=== PATIENT | female | born 1975 | race Two or more races ===

== ENCOUNTER 2023-03-13 18:06 | Outpatient (REF) | payer SELFPAY ==
[2023-03-14 11:50] LABS: CT PCR NOT DETECTED (Not Detect.); NG PCR NOT DETECTED (Not Detect.)
== END 2023-03-13 18:07 | disposition home or self-care (01) ==
LOC: HO.HHCLNP 18:06
PROVIDERS: Visit Provider Internal Medicine
DX: R30.0 Dysuria (principal); Z11.3 Encounter for screening for infections with a predominantly sexual mode of transmission
CPT/HCPCS: 0353U; 87086; 87088; 87186

== ENCOUNTER 2023-09-15 17:32 | Outpatient (REF) | payer MEDICAID, SELFPAY ==
[2023-09-16 03:12] LABS: CT PCR NOT DETECTED (Not Detect.); NG PCR NOT DETECTED (Not Detect.)
[2023-09-16 14:51] LABS: BV Int Neg Control Negative (Negative); BV Int Pos Control Positive (Positive)
== END 2023-09-15 17:33 | disposition home or self-care (01) ==
LOC: HO.HHCLNP 17:32
PROVIDERS: Visit Provider Family Medicine
DX: R39.9 Unspecified symptoms and signs involving the genitourinary system (principal); N89.8 Other specified noninflammatory disorders of vagina
CPT/HCPCS: 0353U; 87086; 87480; 87510; 87660

== ENCOUNTER 2024-04-15 10:08 | Outpatient (REF) | payer MEDICAID, SELFPAY ==
[2024-04-15 11:27] LABS: Hematocrit 43.7 % (37.0-47.0); Hemoglobin 14.2 g/dl (12.0-16.0); Mean Corpuscular HGB Conc 32.5 g/dl (31.0-35.0); Mean Corpuscular Hemoglobin 27.8 pg (27.0-33.0); Mean Corpuscular Volume 85.7 fL (80.0-98.0); Mean Platelet Volume 11.5 fL (9.4-12.3); Platelet Count 257 X10*3/uL (160-400); Red Cell Distribution Width 12.8 % (11.0-16.0); White Blood Count 9.7 X10*3/uL (4.8-10.8)
[2024-04-15 13:25] LABS: Estimated Average Glucose 123 mg/dL; Hemoglobin A1C 239.0879 umol/L; Hemoglobin A1c % 5.9 % (<6.0); Total Hemoglobin (HGBA1C) 5912.6093 umol/L
[2024-04-15 13:29] LABS: Alanine Aminotransferase 41 U/L (0-31); Albumin Level 4.1 g/dL (3.5-5.0); Alkaline Phosphatase 100 U/L (39-117); Anion Gap 16 (12-20); Aspartate Amino Transferase 41 U/L (5-31); Bilirubin Total 0.3 mg/dL (0.0-1.0); Blood Urea Nitrogen 10 mg/dL (9-16); Calcium 9.9 mg/dL (8.4-10.2); Carbon Dioxide 23 mmol/L (22-29); Chloride 106 mmol/L (96-108); Cholesterol 179 mg/dL (<200); Estimated Glomerular Filt Rate > 60; Glucose Random 93 mg/dL (60-115); HDL Cholesterol 48 mg/dL (>40); LDL Cholesterol Calculated 101 mg/dL (<100); Potassium 3.8 mmol/L (3.3-5.1); Sodium 141 mmol/L (135-145); TSH reflex Free T4 4.05 uIU/mL (0.32-4.0); Total Protein 7.9 g/dL (6.5-8.0); Triglycerides 150 mg/dL (<150)
[2024-04-15 15:01] LABS: CT PCR NOT DETECTED (Not Detect.); NG PCR NOT DETECTED (Not Detect.)
[2024-04-16 03:34] LABS: Syphilis Screen Nonreactive (Nonreactive)
[2024-04-16 04:09] LABS: HBS Num1 0.11 mIU/mL (0-7.99); HBc Num1 0.21 S/CO (0.00-0.79); HBsAGNum1 0.62 S/CO (0.00-0.99); HIV AB/AG Nonreactive (Nonreactive); HIV Num 1 0.07 S/CO (0.00-0.99); Hepatitis B Core Antibody Nonreactive (Nonreactive); Hepatitis B Surface Antigen Negative (Negative); ~HepC Num1 0.13 S/CO (0.00-0.79); ~Hepatitis B Surface Antibody NONREACTIVE (Nonreactive); ~Hepatitis C Antibody Nonreactive (Nonreactive)
== END 2024-04-15 10:09 | disposition home or self-care (01) ==
LOC: HO.HHCL 10:08
PROVIDERS: Visit Provider Student in an Organized Health Care Education/Training Program
DX: Z00.00 Encounter for general adult medical examination without abnormal findings (principal)
CPT/HCPCS: 36415; 80053; 80061; 82306; 83036; 84439; 84443; 85027; 86704; 86706; 86780; 86803; 87340; 87389; 87491; 87591

== ENCOUNTER 2024-04-18 16:16 | Outpatient (REF) | payer OTHER, SELFPAY ==
[2024-04-19 12:38] LABS: HPV 16,18/45 See PAP report
== END 2024-04-18 16:17 | disposition home or self-care (01) ==
LOC: HO.HHCLNP 16:16
PROVIDERS: Visit Provider Advanced Practice Midwife
DX: Z12.4 Encounter for screening for malignant neoplasm of cervix (principal)
CPT/HCPCS: 87624; 88175

== ENCOUNTER 2024-04-25 13:43 | Outpatient (REF) | payer OTHER, SELFPAY ==
--- NOTE | ~2024-04-25 | US_ITS ---
EXAMINATION: US PELVIS CLINICAL INFORMATION: Postmenopausal bleeding. COMPARISON: None available. TECHNIQUE: Ultrasound of the pelvis is performed using both transabdominal and transvaginal transducers along with Doppler. Transvaginal imaging is performed due to inadequate visualization transabdominally. FINDINGS: UTERUS: The uterus is anteverted and measures 6.5 x 2.4 x 4.5 cm. Nabothian cysts and calcifications within the cervix. The double wall endometrial thickness is 4 mm. The uterus is smooth in contour and has normal myometrial echogenicity. No visible fibroid. ADNEXA: Both ovaries are visualized. There is normal color flow to the adnexa. There is no ovarian torsion. There is no pelvic ascites or fluid collection. Right ovary measures 1.6 x 0.8 x 0.8 cm. Volume of 0.6 mL. Left ovary measures 1.6 x 0.9 x 0.9 cm. Volume of 0.6 mL. US/US pelvic and transvaginal IMPRESSION: 1. Sonographically unremarkable uterus and endometrium. Nabothian cysts and calcifications within the cervix. 2. Sonographically unremarkable right and left ovary. Electronically signed by: Richie Allen MD 04/25/2024 05:45 PM [facility] [place]
== END 2024-04-25 13:44 | disposition home or self-care (01) ==
LOC: HO.US 13:43
PROVIDERS: PCP Student in an Organized Health Care Education/Training Program; Visit Provider Advanced Practice Midwife
DX: N95.0 Postmenopausal bleeding (principal)
CPT/HCPCS: 76830; 76856

== ENCOUNTER 2024-05-04 09:51 | Outpatient (REF) | payer OTHER, SELFPAY ==
--- NOTE | ~2024-05-04 | MM_ITS ---
EXAMINATION: MM SCREENING DIGITAL BREAST TOMOSYNTHESIS, BILATERAL CLINICAL INFORMATION: Screening. Asymptomatic. COMPARISON: Mammography: Baseline. TECHNIQUE: Digital breast mammography with tomosynthesis is performed in both the craniocaudal and mediolateral oblique views along with computer-aided detection (CAD). FINDINGS: There are scattered areas of fibroglandular density (ACR BI-RADS breast composition Category b). There are no significant masses, abnormal calcifications, or other abnormalities. MM/MM tomosynthesis screening BI IMPRESSION: No mammographic evidence of malignancy. ASSESSMENT: BI-RADS BI-RADS 1 - Negative RECOMMENDATION: Routine annual mammography screening. 1 year F/U This examination should not preclude the clinical evaluation of a suspicious palpable abnormality. This patient's information was entered into a reminder system with a target due date for their next mammogram. Electronically signed by: April Chung DO 05/15/2024 12:13 PM [facility]
== END 2024-05-04 09:52 | disposition home or self-care (01) ==
LOC: HO.MAMMO 09:51
PROVIDERS: PCP Student in an Organized Health Care Education/Training Program; Visit Provider Student in an Organized Health Care Education/Training Program
DX: Z12.31 Encounter for screening mammogram for malignant neoplasm of breast (principal)
CPT/HCPCS: 77063; 77067

== ENCOUNTER → 2024-05-04 10:00 | Outpatient (BNV) | payer OTHER, SELFPAY | PROVIDERS: PCP Student in an Organized Health Care Education/Training Program; Visit Provider Internal Medicine | DX: Z12.31 Encounter for screening mammogram for malignant neoplasm of breast (principal) | CPT/HCPCS: 77063; 77067 ==

== ENCOUNTER 2025-05-07 10:01 | Outpatient (AMB) | payer OTHER, SELFPAY ==
--- NOTE | 2025-05-07 10:34 | A.OFFVIS_ITS ---
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 Doesnt have hard time falling asleep but hard time staying asleep. Does snore, no witnessed apnea/gasping. Goes to bed at 11:30pm, wakes up at 6am. Wakes up 2-3 times night to use bathroom. No naps. Headaches at times goes away through out the day. No history of sleep study Foreign Car Mechanic Required: Yes Foreign Car Mechanic Language: Professional Housing Consultant Services: Foreign Car Mechanic Offered & Declined Foreign Car Mechanic Name: alvino Information Interpreted: non-clinical & clinical Accompanied by: Self / Same As Patient Allergies No Known Allergies Allergy (Verified 05/07/25 10:38) HPI Comments Details: 50 year old female is referred to us for an evaluation of ROSALIE by her PCP Dr. Alves. Her niece Yenny is interpreting on her IPhone today. She works as a [employer] is chronically fatigued, goes to bed at midnight and wakes up at 6am for work. She has difficulty staying asleep for years now with multiple arousals for the bathroom, and has vivid dreams. She has night peralta once a month. She snores sometimes, she has morning headaches daily takes advil liquid gels as needed. Memory is stable will occasionally will forget why she entered a room. She has to write all tasks down. Mood is consistently feels stressed, has anxiety, she gets overwhelmed and has a lot on her plate. She has been on zepbound for 2 months now and lost 9lbs weights. She walks every other day, drinks plenty of water. Denies HST, gasping for air, choking, bruxism, acid reflux, RLS symptoms, cramps, spasms, paresthesisias, parasomnias, a/v hallucinations. Denies RLS symptoms. Former smoker of 10 years and quit a few years ago, no alcohol, MJ edibles. FH+ for dementia and mental health. [facility] Medical History Elevated blood pressure reading Loud snoring Onychomycosis Allergic contact stomatitis due to denture Retained dental root Periodontal disease Dental calculus Morbid obesity Physical Exam Vital Signs: Last Vital Signs Pulse 79 05/07/25 10:37 BP 122/82 05/07/25 10:37 Pulse Ox 97 05/07/25 10:37 Oxygen Delivery Method Room Air 05/07/25 10:37 BMI result Body Mass Index 42.9 Const General: cooperative, comfortable and no acute distress Orientation/consciousness: patient oriented x3 HEENT Face and sinus: Yes face symmetric Throat: Yes other (mallampti score of 3) Eyes Pupils: Equal, round and reactive pupils present Neck Neck: Yes full ROM Resp Effort & Inspection: normal respiratory effort and able to speak in complete sentences Neuro General: patient oriented x3 and moves all extremities Cranial nerves: Yes Equal, round and reactive pupils present, Yes Normal accommodation reflex present, Yes Normal facial strength present, Yes Ability to bilaterally rotate head present and Yes Ability to bilaterally elevate shoulders present Cognition (Neuro): normal cognition Gait exam (Neuro): Normal gait present Motor exam (neuro): 5/5 motor strength present throughout and Normal motor muscle tone present throughout Psych Appearance: grossly normal Speech and movement: Normal speech and movement present Attitude: cooperative Thought process: Normal thought process present Thought content: Normal thought content present Results Reviewed Results Reviewed: labs reviewed with pt vit d is low, and TSH is high. Assessment & Plan Assessment & Plan (1) Excessive daytime sleepiness: Code(s): G47.19 - Other hypersomnia Category: Medical (2) Low vitamin D level: Code(s): R79.89 - Other specified abnormal findings of blood chemistry Category: Medical (3) Chronic fatigue: Code(s): R53.82 - Chronic fatigue, unspecified Category: Medical Plan HST r/o rosalie Melatonin 3-5mg po daily for fragmented sleep patterns. Magnesium 200-400mg po for headaches. Labs reviewed with pt TSH is elevated, Vit D low, will refill today and check ferritin, b12, homocystiene, MMA, Folate. Orders: Orders RT home sleep study Today G47.19 - Other hypersomnia Ferritin Today R53.82 - Chronic fatigue, unspecified Homocysteine Today G47.9 - Sleep disorder, unspecified, R53.82 - Chronic fatigue, unspecified, R53.83 - Other fatigue Vitamin B12 and Folate Today R53.82 - Chronic fatigue, unspecified Methylmalonic Acid Today G47.9 - Sleep disorder, unspecified, R53.82 - Chronic fatigue, unspecified, R53.83 - Other fatigue Medications: New magnesium oxide 400 mg PO DAILY 90 tabs 0RF G47.19 - Other hypersomnia Patient Instructions: Sleep Hygiene provided: set a scheduled bedtime and wake time to help regulate the circadian rhythm and balance the release of pituitary hormones. Sleep in a dark room, temperatures below 68 degrees, and no devices n bed. Limit caffeinated products 6 hours prior to bed, and limit fluids 2-4 hours prior to bed. Gentle night yoga, diffusing essential oils, and playing soft music can be relaxing. Coding Level of Care Code New Pt Level 4 (37832) Diagnoses Excessive daytime sleepiness G47.19 Low vitamin D level R79.89 Chronic fatigue R53.82
[2025-05-07 10:37] VITALS: BP 122/82; PULSE 79; O2SAT 97; BMI 42.9
== END 2025-05-07 11:18 | disposition home or self-care (01) ==
LOC: HO.HSMC 10:02
PROVIDERS: PCP Student in an Organized Health Care Education/Training Program; Visit Provider Physician Assistant Medical
DX: G47.19 Other hypersomnia (principal); R79.89 Other specified abnormal findings of blood chemistry; R53.82 Chronic fatigue, unspecified
CPT/HCPCS: 99204

== ENCOUNTER → 2025-05-07 10:01 | Outpatient (BNVA) | payer OTHER, SELFPAY | PROVIDERS: PCP Student in an Organized Health Care Education/Training Program; Visit Provider Physician Assistant Medical | DX: G47.19 Other hypersomnia (principal); R79.89 Other specified abnormal findings of blood chemistry; R53.82 Chronic fatigue, unspecified | CPT/HCPCS: 99202 ==

== ENCOUNTER 2025-05-19 10:09 | Outpatient (REF) | payer OTHER, SELFPAY ==
[2025-05-19 11:40] LABS: Hematocrit 46.9 % (37.0-47.0); Hemoglobin 14.9 g/dl (12.0-16.0); Imm Gran Abs Auto 0.02 X10*3/uL (0.00-0.03); Imm Gran Pct Auto 0.2 % (0.0-0.4); Lymphocytes Absolute Auto 2.3 X10*3/uL (1.2-4.9); MANUAL DIFF FLAG SCAN; Mean Corpuscular HGB Conc 31.8 g/dl (31.0-35.0); Mean Corpuscular Hemoglobin 27.2 pg (27.0-33.0); Mean Corpuscular Volume 85.6 fL (80.0-98.0); NRBC Abs Auto 0.000 X10*3/uL (0.0-0.012); NRBC Pct Auto 0.0 /100WBC (0.0-0.2); PLT CLUMP 1; Red Blood Count 5.48 X10*6/uL (4.20-5.50); SCAN SMEAR FLAG 1
[2025-05-19 12:06] LABS: Alanine Aminotransferase 52 U/L (0-31); Albumin Level 4.6 g/dL (3.5-5.0); Alkaline Phosphatase 82 U/L (39-117); Anion Gap 11 (12-20); Aspartate Amino Transferase 46 U/L (5-31); Blood Urea Nitrogen 9 mg/dL (9-16); Calcium 9.3 mg/dL (8.4-10.2); Carbon Dioxide 25 mmol/L (22-29); Chloride 107 mmol/L (96-108); Cholesterol 166 mg/dL (<200); Estimated Glomerular Filt Rate > 60; HDL Cholesterol 46 mg/dL (>40); Potassium 4.0 mmol/L (3.3-5.1); Sodium 139 mmol/L (135-145); Total Protein 8.0 g/dL (6.5-8.0); Triglycerides 86 mg/dL (<150)
[2025-05-19 12:07] LABS: Ferritin 107 ng/mL (10-250); Thyroid Stimulating Hormone 4.89 uIU/mL (0.32-4.0)
[2025-05-19 12:14] LABS: Free T4 (Free Thyroxine) 0.92 ng/dL (0.71-1.85)
[2025-05-19 12:22] LABS: Platelet Count 307 X10*3/uL (160-400); White Blood Count 8.4 X10*3/uL (4.8-10.8)
[2025-05-19 12:22] LABS: CT PCR Urine NOT DETECTED (Not Detect.); NG PCR Urine NOT DETECTED (Not Detect.)
[2025-05-19 12:23] LABS: Folate 6.8 ng/mL (> or = 4.0); Vitamin B12 395 pg/mL (200-900)
[2025-05-19 12:30] LABS: Syphilis Screen Nonreactive (Nonreactive)
[2025-05-19 12:31] LABS: HBS Num1 0.00 mIU/mL (0-7.99); HBc Num1 0.06 S/CO (0.00-0.79); HBsAGNum1 0.42 S/CO (0.00-0.99); HIV Num 1 0.08 S/CO (0.00-0.99); Hepatitis B Surface Antigen Negative (Negative); ~HepC Num1 0.10 S/CO (0.00-0.79); ~Hepatitis B Surface Antibody NONREACTIVE (Nonreactive); ~Hepatitis C Antibody Nonreactive (Nonreactive)
== END 2025-05-19 10:10 | disposition home or self-care (01) ==
LOC: HO.LAB 10:09
PROVIDERS: PCP Student in an Organized Health Care Education/Training Program; Visit Provider Physician Assistant Medical
DX: Z00.00 Encounter for general adult medical examination without abnormal findings (principal); R53.83 Other fatigue; G47.9 Sleep disorder, unspecified; R53.82 Chronic fatigue, unspecified; R79.89 Other specified abnormal findings of blood chemistry; Z20.2 Contact with and (suspected) exposure to infections with a predominantly sexual mode of transmission; Z11.59 Encounter for screening for other viral diseases
CPT/HCPCS: 36415; 80053; 80061; 82306; 82607; 82728; 82746; 83036; 83090; 83921; 84439; 84443; 85025; 86704; 86706; 86780; 86803; 87340; 87389; 87491; 87591